=== PATIENT | female | born 1940 | race Caucasian/White ===

== ENCOUNTER → 2018-03-07 | Outpatient (CLI) | payer OTHER, BC ==
[~2018-03-07] MED LIST: ALBU0.08 INH; ASCA500 PO; ASPI81TA28 PO; ASTN; CHOL100010 PO; DOXA1TAB PO; IMMU4INJ INJ; MULT-506 PO; OPTIRAY 320 IV PRN
--- NOTE | 2018-03-07 12:22 | DIAGNOSTIC IMAGING REPORT ---
CT SCAN OF THE CHEST, ABDOMEN, AND PELVIS WITH IV CONTRAST CLINICAL HISTORY: Waldenstrom macroglobulinemia. COMPARISON STUDY: Chest CT dated 03/28/2014. Abdominal CT dated 05/27/2014. Chest x-ray dated 12/15/2014. TECHNIQUE: Following the IV administration of 119 of Optiray 320, CT scan of the chest, abdomen, and pelvis was performed from the thoracic inlet to the proximal femora. Images are reviewed in the axial, sagittal, and coronal planes. IV contrast was administered without complication. A dose lowering technique was utilized adhering to the principles of ALARA. CT DOSE: 591.25 mGy.cm FINDINGS: CHEST: Thyroid: The thyroid gland is mildly enlarged and heterogeneous. Bilateral low-attenuation thyroid nodules measure up to 12 mm. These been present dating back to 2013. Thoracic aorta: There is mild atherosclerotic calcification of the thoracic aorta, which is normal in caliber and demonstrates 4-vessel variant arch anatomy. No dissection is seen. Pulmonary vasculature: The pulmonary trunk is normal in caliber. There are no filling defects identified in the central pulmonary vessels to indicate pulmonary embolus. Note that this examination was not protocoled for evaluation of the pulmonary arteries. Heart: The heart is normal in size and configuration, and without pericardial effusion. The coronary arteries are densely calcified. Lungs and pleural spaces: There is no airspace consolidation or pleural effusion. The trachea and central airways are clear. Calvarium is seen at the left lung base. Scarring/atelectasis is present in the right middle lobe and lingula. Mediastinum: There is no mediastinal lymphadenopathy. Natalie: Clear. Axillae: There is no axillary lymphadenopathy. Bony thorax: The skeletal structures are osteopenic. There are compression deformities of T7 and T12. Mild degenerative change is noted in the thoracic spine and shoulders. No lytic or blastic lesions are identified. ABDOMEN AND PELVIS: Liver: The contrast-enhanced liver is normal in size, contour, and attenuation. There is no intrahepatic or ductal dilatation. The hepatic veins and portal veins are patent. Gallbladder: Surgically absent noting clips in the gallbladder fossa. Spleen: Normal in size and attenuation, measuring 9.6 cm in length. Pancreas: Atrophic and grossly unremarkable. Adrenal glands: Unremarkable. Kidneys: The contrast enhanced kidneys demonstrate cortical atrophy and are without hydronephrosis. The kidneys enhance symmetrically. Abdominal vasculature: The abdominal aorta is normal in course and caliber noting mild atherosclerotic calcification. Bowel: There is mild colonic diverticulosis without CT evidence of acute diverticulitis. Colonic fecal retention is observed. A hernia in the left ventral pelvis seen on image #281 contains a nonobstructed segment of small bowel. No bowel obstruction is seen. The appendix is not identified and reported surgically absent. Peritoneum: There is no intraperitoneal free air or abdominal ascites. There is a fat-containing umbilical hernia as well as a small fat-containing infraumbilical hernia. A bowel containing hernia is seen in the left lower quadrant. Lymphadenopathy: None. Pelvic viscera: Evaluation of the pelvis is degraded by streak artifact from a left hip arthroplasty. The bladder wall appears mildly thickened and hyperemic. There is a small focus of gas within the bladder lumen and there is faint pericystic inflammatory change. The uterus and adnexa are normal as imaged. Skeletal structures: The skeletal structures are osteopenic. There are compression deformities of L2, L3, L4, and L5. Lumbosacral spondylosis is observed. No lytic or blastic lesions are seen. A left hip or other plasty is in place. IMPRESSION: 1. There is no lymphadenopathy identified in the chest, abdomen, or pelvis. 2. The spleen is normal in size. 3. The lungs are clear. 4. Findings suggest cystitis. Correlation with clinical findings and urinalysis will be required. 5. There is mild colonic diverticulosis without CT evidence of acute diverticulitis. 6. There is a hernia in the left ventral pelvis which contains a nonobstructed segment of small bowel. 7. There are numerous chronic thoracolumbar compression deformities, which have been present dating back to 2013. 8. Additional findings as above. Electronically signed by: Aiden Patel M.D. 03/07/2018 12:21 PM Dictated Date/Time: 03/07/2018 12:10 PM
== END | disposition home or self-care (01) ==
LOC: C.CTS 11:22
PROVIDERS: ATTEND Internal Medicine Hematology & Oncology
DX: C88.0 Waldenstrom macroglobulinemia (principal)

== ENCOUNTER 2018-03-15 20:10 | Emergency (ER) | payer OTHER, BC ==
[~2018-03-15 20:10] MED LIST changes: -OPTIRAY 320 IV PRN
[2018-03-15 20:19] VITALS: TEMP 36.6; Ht 157.5 cm
[2018-03-15] MEDS ORDERED: ONDANSETRON 4MG OD TAB PO ONE (20:30)
[2018-03-15] MEDS ORDERED: OXYCODONE HCL IR 5 MG TAB (IMMEDIATE RELEASE) PO STA (20:30)
--- NOTE | 2018-03-15 21:14 | DIAGNOSTIC IMAGING REPORT ---
CT SCAN OF THE BRAIN WITHOUT IV CONTRAST CLINICAL HISTORY: Fall. COMPARISON STUDY: CT of the brain dated 04/11/2012. TECHNIQUE: Unenhanced axial CT scan of the brain is performed from the vertex to the skull base. A dose lowering technique was utilized adhering to the principles of ALARA. CT DOSE: 638.56 mGycm FINDINGS: Brain parenchyma: There are age-related involutional changes noting moderate patchy subcortical and periventricular microangiopathic change. Chronic lacunar infarcts are present within the basal ganglia bilaterally. There is no hemorrhage, mass effect, or evidence of acute territorial ischemia by CT criteria. Wolfe-white matter is preserved. No extra-axial fluid collection is seen. Ventricles, sulci, cisterns: Prominent secondary to involutional change. Intracranial vasculature: There is atherosclerotic calcification of the cavernous carotid arteries. Calvarium: The skeletal structures are osteopenic. There is no depressed calvarial fracture. Soft tissues: There is trace frontal scalp contusion. Sinuses and mastoids: There is moderate mucosal thickening within the ethmoid sinuses. Mild mucosal thickening is seen within the maxillary antra, noting an air-fluid level in the left. The mastoid air cells are well pneumatized. A tiny metallic foreign body is noted within a left mastoid air cell. Orbits: The bony orbits are grossly intact. There are bilateral ocular lens implants. IMPRESSION: 1. There is no hemorrhage, mass effect, or evidence of acute territorial ischemia by CT criteria. 2. Paranasal sinus disease as above. Electronically signed by: Aiden Patel M.D. 03/15/2018 9:13 PM Dictated Date/Time: 03/15/2018 9:09 PM
--- NOTE | 2018-03-15 21:26 | DIAGNOSTIC IMAGING REPORT ---
CT SCAN OF THE CERVICAL SPINE CLINICAL HISTORY: Trauma. Fall. COMPARISON STUDY: PET/CT dated 07/17/2013. TECHNIQUE: CT scan of the cervical spine is performed from the skull base to the upper thoracic spine. Images are reviewed in the axial, sagittal, and coronal planes. IV contrast was not administered for this examination. A dose lowering technique was utilized adhering to the principles of ALARA. CT DOSE: 391.08 mGycm FINDINGS: Skeletal structures: The skeletal structures are osteopenia. There is no evidence of fracture or subluxation involving the cervical spine. Vertebral body height is maintained. There is minimal anterolisthesis at C4-C5 and C6-C7. Alignment is otherwise preserved. There is straightening of the cervical lordosis. Small anterior osteophytes are seen throughout. The odontoid process and lateral masses are intact. The atlantoaxial articulation is preserved noting productive degenerative change. The spinous processes appear intact. There is moderate multilevel cervical spondylosis. Uncovertebral and facet arthropathy contribute to neural foraminal narrowing at several levels. Arthritic change is noted at the temporomandibular joints. Intervertebral discs: There is moderate disc space narrowing at C5-C6 and C6-C7. The remaining disc spaces appear maintained. Central canal: Large posterior disc osteophyte complexes at C5-C6 and C6-C7 likely contribute to acquired compromise of the central canal. Soft tissues: The prevertebral and paraspinous soft tissues are within normal limits. Atherosclerotic calcification is noted in the carotid bulbs. A 1.5 cm calcified exophytic thyroid nodule seen posterior to the right thyroid lobe is unchanged dating back to 2012. Calvarium: The visualized calvarium at the skull base appears intact. Brain parenchyma: Partially visualized brain parenchyma the skull base is within normal limits noting age-related involutional change. Sinuses and mastoids: Mucosal thickening and trace fluid is noted within the maxillary antra. The mastoid air cells are well pneumatized. A small metallic foreign body is noted in the left middle ear cavity. Lung apices: Clear as visualized. IMPRESSION: 1. There is no evidence of fracture or subluxation involving the cervical spine. 2. Osteopenia and spondylotic change as above. Electronically signed by: Aiden Patel M.D. 03/15/2018 9:24 PM Dictated Date/Time: 03/15/2018 9:19 PM
[2018-03-15] MEDS ORDERED: OXYCODONE IR HOME PACK PO ONE (22:00)
[2018-03-15] MEDS ORDERED: OXYC-90 PO (22:00)
[2018-03-15 22:19] VITALS: BP 147/88; PULSE 89; O2SAT 97
--- NOTE | 2018-03-15 22:24 | DIAGNOSTIC IMAGING REPORT ---
LEFT SHOULDER 3 VIEWS; LEFT HUMERUS 2 VIEWS CLINICAL HISTORY: Fall with left arm injury. FINDINGS: 3 views of the left shoulder with AP and lateral views of the left humerus are obtained. No prior studies are available for comparison at the time of dictation. The skeletal structures are osteopenic. There is an impacted and comminuted fracture of the left humeral neck and head. There are distracted fragments from the humeral head. The humeral head remains within the glenoid fossa. The acromioclavicular joint is preserved noting productive degenerative change. The distal humeral shaft is intact. The elbow joint is grossly maintained. Soft tissue edema is noted around the humeral fracture. The visualized left lung parenchyma appears clear. IMPRESSION: There is an impacted and comminuted fracture of the left humeral neck and head as above. Electronically signed by: Aiden Patel M.D. 03/15/2018 10:23 PM Dictated Date/Time: 03/15/2018 10:20 PM
--- NOTE | 2018-03-15 22:38 | EMERGENCY ROOM VISIT NOTE ---
History Report prepared by Al: Toni Campos Under the Supervision of: Dr. Douglas Ryan M.D. First contact with patient: 20:24 Chief Complaint: FALL Stated Complaint: FELL EARLIER, LEFT ARM/SHOULDER PAIN, HIT HEAD History of Present Illness The patient is a 77 year old female who presents to the Emergency Room with complaints of a sharp pain in her left shoulder after a fall that occurred this morning. The patient states that she tripped over a doorway and fell, noting that she hit her head. She is unsure if she lost consciousness, but notes that she was unable to get up initially and "just laid there awhile." She does not believe she injured her hips or back. She states that the pain in her shoulder is worsened with movement. She did not want to come in earlier but her arm pain worsens. She notes a current headache and some neck stiffness. The patient denies taking blood thinners or a history of hypertension. The patient' s daughter states that she has not eaten all day. Source of History: patient, family (daughter) Onset: this morning Position: shoulder (left) Symptom Intensity: severe Quality: sharp (pain in shoulder), other (fall) Modifying Factors (Worsening): movement Associated Symptoms: + headache, + neck pain (stiffness), No chest pain, No SOB Note: unsure if she lost consciousness Review of Systems See HPI for pertinent positives & negatives. A total of 10 systems reviewed and were otherwise negative. Past Medical & Surgical Medical Problems: (1) Diverticulosis (2) Hypogammaglobulinemia (3) Waldenstrom macroglobulinemia Family History Cancer Diabetes mellitus Heart disease Hypertension Kidney disease Kidney stones Social History Smoking Status: Never Smoker Alcohol Use: none Drug Use: none Marital Status: single Housing Status: lives with family Occupation Status: retired Current/Historical Medications Scheduled Albuterol Soln (Proventil 0.083% 2.5MG/3ML), 2.5 MG INH Q4-6H Ascorbic Acid (Vitamin C), 500 MG PO QAM Aspirin (Aspirin Ec), 81 MG PO QAM Cholecalciferol (Vitamin D), 2,000 INTER.UNIT PO QAM Doxazosin Mesylate (Cardura), 2 MG PO HS Immune Globulin (Human) Subcut (Hizentra), 8 GM INJ WEEKLY Multivitamin (Multivitamin), 1 TAB PO QAM Scheduled PRN Azelastine Hcl (Astelin Nasal [place]), 1-2 SPRAYS NA BID PRN for PRN Oxycodone Ir (Roxicodone Ir), 5 MG PO Q4H PRN for Pain Allergies Coded Allergies: [place] (Verified Allergy, Intermediate, HIVES, 12/11/14) Sulfa Drugs (Verified Allergy, Mild, RASH,HIVES, 12/11/14) Physical Exam Vital Signs Date Time Temp Pulse Resp B/P (MAP) Pulse Ox O2 Delivery O2 Flow Rate FiO2 03/15/18 22:19 89 18 147/88 97 03/15/18 20:19 36.6 98 18 164/89 96 Room Air Physical Exam Constitutional: Vital signs reviewed. Eyes: Pupils are equal round reactive to light. Conjunctiva are noninjected. ENT: Pharynx is clear without erythema or exudate. Mucous membranes are moist. Neck supple without meningeal signs. Respiratory: Clear to auscultation bilaterally. Breath sounds are equal bilaterally. Cardiovascular: Regular rate and rhythm. No rubs or gallops. GI: Soft, nondistended and nontender. Bowel sounds are present. Musculoskeletal: No midline tenderness to the cervical spine. Diffuse tenderness to the left shoulder and proximal humerus without deformity. No tenderness to the elbow or distal left arm. No hip tenderness. Integumentary: No cyanosis. Neurological: The patient is awake and alert. Cranial nerves II-XII are intact. Motor is 5 out of 5 all extremities. Sensation is intact to light touch all extremities. Normal speech. No pronator drift. Psychiatric: Normal affect. Medical Decision & Procedures ER Provider Diagnostic Interpretation: Radiology results as stated below per my review and the radiologist's interpretation: CT SCAN OF THE CERVICAL SPINE CLINICAL HISTORY: Trauma. Fall. COMPARISON STUDY: PET/CT dated 07/17/2013. TECHNIQUE: CT scan of the cervical spine is performed from the skull base to the upper thoracic spine. Images are reviewed in the axial, sagittal, and coronal planes. IV contrast was not administered for this examination. A dose lowering technique was utilized adhering to the principles of ALARA. CT DOSE: 391.08 mGycm FINDINGS: Skeletal structures: The skeletal structures are osteopenia. There is no evidence of fracture or subluxation involving the cervical spine. Vertebral body height is maintained. There is minimal anterolisthesis at C4-C5 and C6-C7. Alignment is otherwise preserved. There is straightening of the cervical lordosis. Small anterior osteophytes are seen throughout. The odontoid process and lateral masses are intact. The atlantoaxial articulation is preserved noting productive degenerative change. The spinous processes appear intact. There is moderate multilevel cervical spondylosis. Uncovertebral and facet arthropathy contribute to neural foraminal narrowing at several levels. Arthritic change is noted at the temporomandibular joints. Intervertebral discs: There is moderate disc space narrowing at C5-C6 and C6-C7. The remaining disc spaces appear maintained. Central canal: Large posterior disc osteophyte complexes at C5-C6 and C6-C7 likely contribute to acquired compromise of the central canal. Soft tissues: The prevertebral and paraspinous soft tissues are within normal limits. Atherosclerotic calcification is noted in the carotid bulbs. A 1.5 cm calcified exophytic thyroid nodule seen posterior to the right thyroid lobe is unchanged dating back to 2012. Calvarium: The visualized calvarium at the skull base appears intact. Brain parenchyma: Partially visualized brain parenchyma the skull base is within normal limits noting age-related involutional change. Sinuses and mastoids: Mucosal thickening and trace fluid is noted within the maxillary antra. The mastoid air cells are well pneumatized. A small metallic foreign body is noted in the left middle ear cavity. Lung apices: Clear as visualized. IMPRESSION: 1. There is no evidence of fracture or subluxation involving the cervical spine. 2. Osteopenia and spondylotic change as above. Electronically signed by: Aiden Patel M.D. 03/15/2018 9:24 PM Dictated Date/Time: 03/15/2018 9:[address] SCAN OF THE BRAIN WITHOUT IV CONTRAST CLINICAL HISTORY: Fall. COMPARISON STUDY: CT of the brain dated 04/11/2012. TECHNIQUE: Unenhanced axial CT scan of the brain is performed from the vertex to the skull base. A dose lowering technique was utilized adhering to the principles of ALARA. CT DOSE: 638.56 mGycm FINDINGS: Brain parenchyma: There are age-related involutional changes noting moderate patchy subcortical and periventricular microangiopathic change. Chronic lacunar infarcts are present within the basal ganglia bilaterally. There is no hemorrhage, mass effect, or evidence of acute territorial ischemia by CT criteria. Wolfe-white matter is preserved. No extra-axial fluid collection is seen. Ventricles, sulci, cisterns: Prominent secondary to involutional change. Intracranial vasculature: There is atherosclerotic calcification of the cavernous carotid arteries. Calvarium: The skeletal structures are osteopenic. There is no depressed calvarial fracture. Soft tissues: There is trace frontal scalp contusion. Sinuses and mastoids: There is moderate mucosal thickening within the ethmoid sinuses. Mild mucosal thickening is seen within the maxillary antra, noting an air-fluid level in the left. The mastoid air cells are well pneumatized. A tiny metallic foreign body is noted within a left mastoid air cell. Orbits: The bony orbits are grossly intact. There are bilateral ocular lens implants. IMPRESSION: 1. There is no hemorrhage, mass effect, or evidence of acute territorial ischemia by CT criteria. 2. Paranasal sinus disease as above. Electronically signed by: Aiden Patel M.D. 03/15/2018 9:13 PM Dictated Date/Time: 03/15/2018 9:09 PM LEFT SHOULDER 3 VIEWS; LEFT HUMERUS 2 VIEWS CLINICAL HISTORY: Fall with left arm injury. FINDINGS: 3 views of the left shoulder with AP and lateral views of the left humerus are obtained. No prior studies are available for comparison at the time of dictation. The skeletal structures are osteopenic. There is an impacted and comminuted fracture of the left humeral neck and head. There are distracted fragments from the humeral head. The humeral head remains within the glenoid fossa. The acromioclavicular joint is preserved noting productive degenerative change. The distal humeral shaft is intact. The elbow joint is grossly maintained. Soft tissue edema is noted around the humeral fracture. The visualized left lung parenchyma appears clear. IMPRESSION: There is an impacted and comminuted fracture of the left humeral neck and head as above. Electronically signed by: Aiden Patel M.D. 03/15/2018 10:23 PM Dictated Date/Time: 03/15/2018 10:20 PM LEFT SHOULDER 3 VIEWS; LEFT HUMERUS 2 VIEWS CLINICAL HISTORY: Fall with left arm injury. FINDINGS: 3 views of the left shoulder with AP and lateral views of the left humerus are obtained. No prior studies are available for comparison at the time of dictation. The skeletal structures are osteopenic. There is an impacted and comminuted fracture of the left humeral neck and head. There are distracted fragments from the humeral head. The humeral head remains within the glenoid fossa. The acromioclavicular joint is preserved noting productive degenerative change. The distal humeral shaft is intact. The elbow joint is grossly maintained. Soft tissue edema is noted around the humeral fracture. The visualized left lung parenchyma appears clear. IMPRESSION: There is an impacted and comminuted fracture of the left humeral neck and head as above. Electronically signed by: Aiden Patel M.D. 03/15/2018 10:23 PM Dictated Date/Time: 03/15/2018 10:20 PM Medications Administered Medications (Trade) Dose Ordered Sig/Chin Route Start Time Stop Time Status Last Admin Dose Admin Oxycodone HCl (Roxicodone Immediate Rel Tab) 5 mg NOW STAT PO 03/15/18 20:30 03/15/18 20:32 DC 03/15/18 20:37 5 MG Ondansetron HCl (Zofran Odt) 4 mg ONE ONCE PO 03/15/18 20:30 03/15/18 20:32 DC 03/15/18 20:37 4 MG ED Course 2024: The patient was evaluated in room B4B. A complete history and physical exam was performed. 2030: Ordered Zofran 4 mg PO, Oxycodone HCl 5 mg PO 2140: I discussed test results with the patient. She reports that she sees Dr. Almodovar - Orthopedics. 2154: I consulted Dr. Mcintyre - Orthopedic Surgeon. He advises putting the patient in a sling and swath, and to follow up as an outpatient. 2199: I discussed the plan with the patient, who is feeling slightly better. She verbalizes agreement of the treatment plan. The patient was discharged home. Ordered Oxycodone HCl 1 homepack PO. Medical Decision This is a 77-year-old female presents with injuries after fall. Differential diagnosis includes humeral fracture, AC separation, contusion, cervical strain, intracranial hemorrhage, concussion. I did perform a limited focused review of portions of the patient's old chart on the electronic medical record. The patient has had no recent pertinent visits to this hospital. I did evaluate the patient as noted above. I did treat patient with oxycodone. She is also given Zofran ODT because she has not eaten all day. I did order and personally review the patient's x-rays as described above. I did order a CT of the head and cervical spine. I did review the images myself as well as the radiology report as described above. Patient has a proximal humeral fracture. There is no intracranial hemorrhage. There is no cervical fracture. I did reassess the patient. She is feeling somewhat better. I did discuss the test results with her and her daughter. I did discuss the case with orthopedics who recommended a sling and swath and outpatient follow-up. The patient was placed in a sling and swath and discharged with a prescription for oxycodone. She will follow-up with Dr. Almodovar who is her orthopedic doctor. [place] Drug Monitoring Program Search Results: no issues identified Head Trauma GCS Score: 15 Medication Reconcilliation Current Medication List: was personally reviewed by me Blood Pressure Screening Patient's blood pressure: Elevated blood pressure Blood pressure disposition: Referred to PCP Consults Time Called: 2149 Consulting Physician: Dr. Mcintyre - Orthopedic Surgeon Returned Call: [address] Mcintyre - Orthopedic Surgeon. He advises putting the patient in a sling and swath, and to follow up as an outpatient. Impression Primary Impression: Fracture of proximal end of left humerus Additional Impressions: Acute head injury Fall Scribe Attestation The scribe's documentation has been prepared under my direct and personally reviewed by me in its entirety. I confirm that the note above accurately reflects all work, treatment, procedures, and medical decision making performed by me. Departure Information Dispostion Home / Self-Care Prescriptions Oxycodone Ir (Roxicodone Ir) 5 Mg Tab 5 MG PO Q4H Y for Pain, #20 TAB Prov: Douglas Ryan M.D. 03/15/18 Referrals Jac Marley D.O. (PCP) Forms HOME CARE DOCUMENTATION FORM, IMPORTANT VISIT INFORMATION Patient Instructions My [facility] Additional Instructions You have been examined and treated today on an emergency basis only. This is not a substitute for, or an effort to provide, complete comprehensive medical care. It is impossible to recognize and treat all injuries or illnesses in a single emergency department visit. It is therefore important that you follow up closely with your physician and Dr. Almodovar of orthopedics. Call as soon as possible for an appointment. Return for worsening symptoms or if you develop numbness or weakness in your left arm or any other concerning symptoms. Problem Qualifiers Primary Impression: Fracture of proximal end of left humerus Encounter type: initial encounter Fracture type: closed Fracture morphology : unspecified fracture morphology Qualified Codes: S42.202A - Unspecified fracture of upper end of left humerus, initial encounter for closed fracture Additional Impressions: Acute head injury Encounter type: initial encounter Qualified Codes: S09.90XA - Unspecified injury of head, initial encounter Fall Encounter type: initial encounter Qualified Codes: W19.XXXA - Unspecified fall, initial encounter
== END 2018-03-15 22:19 | disposition home or self-care (01) ==
LOC: C.EDB 20:11
DX: S42.202A Unspecified fracture of upper end of left humerus, initial encounter for closed fracture (principal); S09.90XA Unspecified injury of head, initial encounter; W18.09XA Striking against other object with subsequent fall, initial encounter; D80.1 Nonfamilial hypogammaglobulinemia; C88.0 Waldenstrom macroglobulinemia; Z80.9 Family history of malignant neoplasm, unspecified; Z83.3 Family history of diabetes mellitus; Z82.49 Family history of ischemic heart disease and other diseases of the circulatory system; Z84.1 Family history of disorders of kidney and ureter; Z79.82 Long term (current) use of aspirin; Z79.899 Other long term (current) drug therapy; Z88.2 Allergy status to sulfonamides; Z91.018 Allergy to other foods

== ENCOUNTER 2019-11-16 07:35 | Inpatient (IN) ==
[2019-11-16] MEDS ORDERED: ACETAMINOPHEN 325 MG TAB PO PRN (10:32)
[2019-11-16] MEDS ORDERED: ONDANSETRON INJ 2 MG/ML 2 ML VIAL IV PRN (10:32)
--- NOTE | 2019-11-16 11:06 | History & Physical Report ---
Date of Service November 16, 2019 Assessment & Plan (1) Syncope and collapse: unwitnessed fall at home, unsure if she lost consciousness or not will work up for syncope, keep on monitor to look for arrhythmia, check echo most logical explanation would be anemia Hb 7.7, transfused 1 unit at [facility], will repeat CBC at 2pm could be due to UTI? 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 Babin, no need for formal consult as this could be managed outpatient Admission and Anticipated Discharge Date Admission Date: November 16, 2019 History of Present Illness Chief Complaint: I feel last night Primary Care Provider: Osmin Brar 79 yo female with history of Waldenstrom's macroglobulinemia who presented to the ED at [facility] this morning after experiencing a fall at home. She recalls the details of the fall. She says that she has fallen several times over the past few weeks but typically she can get back up. This particular time, she says she was walking to her bedroom to go to bed when suddenly she fell without warning. She does not feel that she tripped, just that her legs got weak and gave out. She denies losing consciousness but she was alone at the time so there are no witnesses to confirm that she did not lose consciousness. She used her life alert button, family and EMS came to her house, they were able to get her up to a chair and then EMS brought her to ED. She said that she fell on carpeted floor. She had some pain on back of her head but no severe pain in any joints. She could move all her extremities, she just had profound weakness, could not even crawl on the ground. She denies experiencing any light headedness, any chest pain, any diaphoresis prior to the fall. She says that the past few days she has been feeling fine. She has been eating well, moving her bowels, making urine. No fever or chills, no cough, no dyspnea, no chest pain. Reviewed her recent medical care, including a visit with Dr. Babin at [facility] and her PET scan and bone marrow biopsy. She has a history of Waldenstrom's macroglobulinemia that was diagnosed in 2011 after she had a left hip fracture, pathology showed B cell lymphoma. Eventually pathology showed Waldenstrom's. She was treated with four cycles of cladribine, Rituxan and Velcade. She was then maintained on Rituxan and Velcade until 11/2013, considered to be in remission, just followed. Developed hypogammaglobulinemia and given Hizentra for maintenance. More recently she developed anemia and was referred back to oncology. Found to have an M spike on monoclonal proteins. She had a PET scan on 10/08 that showed diffuse marrow activity, minimal increased activity in cervical lymph nodes, not pathologically enlarged. Underwent BM biopsy with Dr. 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 She was supposed to follow up with Dr. Lawrence for results and further recommendations. In the ED at [facility] she was afebrile, vitals stable. Hb found to be 7.7, ordered one unit PRBC in the ED. Cr stable, electrolytes normal. UA showed possible UTI so she was given Rocephin. No fractures on imaging. CT head without hematoma. EKG with normal sinus rhythm, no ischemic changes. Family strongly requested transfer to [facility] because of oncology and continuity of care. Family refused to have her admitted to [facility]. Allergies Allergy/AdvReac Type Severity Reaction Status Date / Time strawberry Allergy Intermediate HIVES Verified 09/27/19 09:13 Sulfa (Sulfonamide Allergy Mild RASH,HIVES Verified 09/27/19 09:13 Antibiotics) Home Medications Home Medications Medication Instructions Recorded Confirmed Type ascorbic acid (vitamin C) 500 mg 500 mg PO DAILY cap 06/16/19 09/27/19 History capsule aspirin 81 mg tablet 81 mg PO DAILY tab 06/16/19 09/27/19 History cholecalciferol (vitamin D3) 50 2,000 units PO DAILY tab 06/16/19 09/27/19 History mcg (2,000 unit) tablet doxazosin 8 mg tablet 8 mg PO DAILY tab 06/16/19 09/27/19 History multivitamin 1 tab PO DAILY 06/16/19 09/27/19 History gabapentin 100 mg PO BID 09/27/19 09/27/19 History Past Med/Surg History Medical History (Updated 11/16/19 @ 11:30 by Bishop Cole DO) Anemia (Acute) History of chemotherapy (Acute) Waldenstrom's disease (Acute) Surgical History (Updated 09/27/19 @ 09:20 by Sarahi Duenas RN) History of colostomy (Acute) History of colostomy reversal (Acute) History of ear, nose, and throat (ENT) surgery (Acute) History of hip surgery (Acute) partial left History of tonsillectomy and adenoidectomy (Acute) Hx of appendectomy (Acute) Family History (Updated 11/16/19 @ 11:26 by Bishop Cole DO) Other Hypertension Social History Preferred Language: Mauritian Communication Ability: Effective School Psychology Specialist Required: No Beliefs That Will Affect Care: None Current Living Situation: Alone Other Information That Helps Us Care for You: No Feels Safe at Home: Yes Safety Concerns: Feels Safe At This Time Smoking Status: Unknown if ever smoked Hx Alcohol Use: No Hx Substance Use: No Review of Systems Review of Systems: All systems reviewed & are unremarkable except as noted in HPI & below Physical Exam Constitutional: well developed, well nourished and + frail appearing; no acute distress Eyes: PERRL, conjunctivae normal, anicteric sclerae ENMT: external ear and nose normal, oropharynx normal Neck: trachea midline, no thyromegaly Respiratory: normal respiratory effort, lungs clear to auscultation Cardiovascular: RRR, no murmur, no edema Gastrointestinal (Abdomen): normal bowel sounds, soft, nontender, no hep atosplenomegaly Musculoskeletal: Head/Neck/Chest: normocephalic and head atraumatic Extremities: extremities normal to inspection and + abnormal strength (generalized weakness); full ROM of extremities, no cyanosis, no clubbing and no petechiae Skin: no rashes, warm and dry Neurologic: patellar DTR's 2+ bilat, sensation intact and PERRL, EOMI, accommodation nl, no face palsy, no dysarthria Psychiatric: A+Ox3, euthymic affect Lymphatic: no cervical or axillary lymphadenopathy Code Status & VTE Plan Code Status DNR - discussed with patient, she said clearly she would not want anything done if she stopped breathing or heart stopped VTE Prophylaxis Plan VTE Prophylaxis will be ordered: Yes PG Care Time/CCT Total # of Minutes Spent Total Time Spent with Patient: Total time spent is greater than 50% in coordination of care (as documented) at patient's floor/unit and/or counseling patient: Coding Level of Care Code 22667 OBS Care - Level 3 Diagnoses Syncope and collapse R55 Symptomatic anemia D64.9 UTI (urinary tract infection) N39.0 Waldenstrom macroglobulinemia C88.0 Malignant lymphoplasmacytic lymphoma C83.00
[2019-11-16 12:19] LABS: Hematocrit (blood only) 29.9 % (37-47); Hemoglobin 9.5 g/dL (12.0-16.0); Mean Corpuscular Hemoglobin 30.8 pg (25-34); Mean Corpuscular Hgb Conc 31.8 g/dL (32-36); Mean Corpuscular Volume 97.1 fL (80-100); Mean Platelet Volume 8.9 fL (7.4-10.4); Nucleated RBC # (auto) 0.02 K/uL (0-0); Nucleated RBC % (auto) 0.2 %; Platelet Count 203 K/uL (130-400); RDW Coefficient of Variation 19.5 % (11.5-14.5); RDW Standard Deviation 69.1 fL (36.4-46.3); Red Blood Count 3.08 M/uL (4.2-5.4); White Blood Count 7.38 K/uL (4.8-10.8)
[2019-11-16 12:56] LABS: Basophils # (auto) 0.02 K/uL (0-0.2); Basophils % (auto) 0.3 %; Eosinophils # (auto) 0.07 K/uL (0-0.5); Eosinophils % (auto) 0.9 %; Immature Granulocytes # (auto) 0.38 K/uL (0.00-0.02); Immature Granulocytes % (auto) 5.1 %; Lymphocytes # (auto) 0.54 K/uL (1.2-3.4); Lymphocytes % (auto) 7.3 %; Monocytes # (auto) 1.66 K/uL (0.11-0.59); Monocytes % (auto) 22.5 %; Neutrophils # (auto) 4.71 K/uL (1.4-6.5); Neutrophils % (auto) 63.9 %; RBC Morphology Unremarkable
--- NOTE | 2019-11-16 13:24 | XCELERA ---
[id number] [id number]
[2019-11-16] MEDS: HEPARIN SOD 5,000 UNIT/0.5 ML VIAL SQ SCH ×2 (14:33→21:46)
[2019-11-16 14:35] LABS: Alanine Aminotransferase 12 U/L (12-78); Albumin Level 1.9 gm/dl (3.4-5.0); Aspartate Aminotransferase 14 U/L (15-37); BUN Creatinine Ratio 17.6 (10-20); Blood Urea Nitrogen 14 mg/dl (7-18); Calcium 8.8 mg/dl (8.5-10.1); Carbon Dioxide 25 mmol/L (21-32); Chloride 110 mmol/L (98-107); Creatinine Clr Calc Pharmacy 45.9 ml/min; Est GFR (African American) 84.5; Est GFR (Non-African American) 72.9; Glucose 121 mg/dl (70-99); Potassium 3.9 mmol/L (3.5-5.1); Sodium 139 mmol/L (136-145)
[2019-11-16 14:39] LABS: Albumin Globulin Ratio 0.4 (0.9-2); Alkaline Phosphatase 139 U/L (45-117); Bilirubin,Total 0.6 mg/dl (0.2-1); Total Protein 6.9 gm/dl (6.4-8.2); Troponin I < 0.015 ng/ml (0-0.045)
[2019-11-17] MEDS: HEPARIN SOD 5,000 UNIT/0.5 ML VIAL SQ SCH ×3 (06:37→20:34)
[2019-11-17 08:29] LABS: Hematocrit (blood only) 31.4 % (37-47); Hemoglobin 9.8 g/dL (12.0-16.0); Mean Corpuscular Hemoglobin 30.1 pg (25-34); Mean Corpuscular Hgb Conc 31.2 g/dL (32-36); Mean Corpuscular Volume 96.3 fL (80-100); Mean Platelet Volume 9.1 fL (7.4-10.4); Platelet Count 215 K/uL (130-400); RDW Coefficient of Variation 19.4 % (11.5-14.5); RDW Standard Deviation 67.5 fL (36.4-46.3); Red Blood Count 3.26 M/uL (4.2-5.4); White Blood Count 6.92 K/uL (4.8-10.8)
[2019-11-17 08:49] LABS: Creatinine Clr Calc Pharmacy 54.6 ml/min; Est GFR (African American) 100.3; Est GFR (Non-African American) 86.6; Potassium 3.9 mmol/L (3.5-5.1)
--- NOTE | 2019-11-17 11:38 | Hospitalist Progress Note ---
Date of Service November 17, 2019 Assessment & Plan (1) Syncope and collapse: unwitnessed fall at home, unsure if she lost consciousness or not will work up for syncope -- no arrhythmia seen, echocardiogram with EF 70%, no valve disease most logical explanation would be anemia Hb 7.7, transfused 1 unit at [facility], Hb up to 9.8 today could be due to UTI? continue treatment with Rocephin no signs of dehydration will order PT/OT -- OT recommending rehab, family agrees CM to reach out to family to discuss options, anticipate referral and approval taking a few days change patient to full admission down grade to medical status, safe to remove monitor (2) Symptomatic anemia: Hb 7.7 at [facility] this is due to lymphoma, no h/o GI bleed, no melena reported Hb up to 9.8, follow daily (3) UTI (urinary tract infection): possible UTI, given Rocephin at [facility] WBC normal, no fever here urine culture growing > 100k GN bacilli per 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 Babin, no need for formal consult as this could be managed outpatient he plans to call patient/family and arrange for visit in near future Admission and Anticipated Discharge Date Admission Date: November 16, 2019 Subjective patient sitting up in a chair this morning, got up with OT she says she ate most of her breakfast she still feels weak, according to OT notes she is NOT safe to go home, recommend rehab discussed with her daughter Brenda, she agrees with rehab spoke with CM, they will reach out to make referrals, change to full admission as she will be here a few days reviewed labs, Hb up to 9.8, Cr and electrolytes stable d/w Dr. Babin about BM biopsy results, symptomatic anemia, no need for inpatient consult, he will call patient/family, arrange visit in next few weeks I called the [facility] ED at [phone] and spoke with ED physician, patient's urine culture growing 100K GN bacilli, no growth on blood cultures physician said to call back tomorrow for final culture results to guide therapy Review of Systems Review of Systems: All systems reviewed & are unremarkable except as noted in HPI & below Constitutional: + weakness; no fever, no chills, no sweats and no fatigue Respiratory: no cough and no dyspnea Cardiovascular: no chest pain, no syncope and no edema Gastrointestinal: no abdominal pain, no nausea, no vomiting, no constipation and no diarrhea/loose stools Genitourinary: no dysuria Physical Exam Constitutional: well developed, well nourished and + frail appearing; no acute distress Eyes: PERRL, conjunctivae normal, anicteric sclerae ENMT: external ear and nose normal, oropharynx normal Neck: trachea midline, no thyromegaly Respiratory: normal respiratory effort, lungs clear to auscultation Cardiovascular: RRR, no murmur, no edema Gastrointestinal (Abdomen): normal bowel sounds, soft, nontender, no hepatosplenomegaly Musculoskeletal: Head/Neck/Chest: normocephalic and head atraumatic Extremities: extremities normal to inspection and + abnormal strength (generalized weakness); full ROM of extremities, no cyanosis, no clubbing and no petechiae Skin: no rashes, warm and dry Neurologic: patellar DTR's 2+ bilat, sensation intact and PERRL, EOMI, accommodation nl, no face palsy, no dysarthria Psychiatric: A+Ox3, euthymic affect Lymphatic: no cervical or axillary lymphadenopathy Results & Data Results & Data ([facility]) Vital Signs (Past 12 Hours) Vital Signs Temp Pulse Pulse Resp BP BP Pulse Ox 11/17/19 07:34 89 11/17/19 07:05 36.5 C 88 18 131/68 95 11/17/19 04:00 36.6 C 93 H 20 134/66 95 11/16/19 23:56 94 H Laboratory Results Laboratory Results - last 24 hr 11/16/19 11/16/19 11/17/19 11:53 14:03 08:18 WBC 7.38 6.92 RBC 3.08 L 3.26 L Hgb 9.5 L 9.8 L Hct 29.9 L 31.4 L MCV 97.1 96.3 MCH 30.8 30.1 MCHC 31.8 L 31.2 L RDW Std Deviation 69.1 H 67.5 H RDW Coeff of Khushi 19.5 H 19.4 H Plt Count 203 215 MPV 8.9 9.1 Immature Gran % (Auto) 5.1 Neut % (Auto) 63.9 Lymph % (Auto) 7.3 Borden % (Auto) 22.5 Eos % (Auto) 0.9 Baso % (Auto) 0.3 Immature Gran # (Auto) 0.38 H Neut # (Auto) 4.71 Lymph # (Auto) 0.54 L Borden # (Auto) 1.66 H Eos # (Auto) 0.07 Baso # (Auto) 0.02 Absolute Nucleated RBC 0.02 H Nucleated RBC % (auto) 0.2 RBC Morphology Unremarkable Sodium 139 Potassium 3.9 Chloride 110 H Carbon Dioxide 25 Anion Gap 5.0 BUN 14 Creatinine 0.77 Est Cr Clr Drug Dosing 45.9 Est GFR ( Amer) 84.5 Est GFR (Non-Af Amer) 72.9 BUN/Creatinine Ratio 17.6 Glucose 121 H Calcium 8.8 Total Bilirubin 0.6 AST 14 L ALT 12 Alkaline Phosphatase 139 H Troponin I < 0.015 Total Protein 6.9 Albumin 1.9 L Globulin 5.0 H Albumin/Globulin Ratio 0.4 L 11/17/19 08:18 WBC RBC Hgb Hct MCV MCH MCHC RDW Std Deviation RDW Coeff of Khushi Plt Count MPV Immature Gran % (Auto) Neut % (Auto) Lymph % (Auto) Borden % (Auto) Eos % (Auto) Baso % (Auto) Immature Gran # (Auto) Neut # (Auto) Lymph # (Auto) Borden # (Auto) Eos # (Auto) Baso # (Auto) Absolute Nucleated RBC Nucleated RBC % (auto) RBC Morphology Sodium 138 Potassium 3.9 Chloride 107 Carbon Dioxide 25 Anion Gap 6.0 BUN 11 Creatinine 0.59 L Est Cr Clr Drug Dosing 54.6 Est GFR ( Amer) 100.3 Est GFR (Non-Af Amer) 86.6 BUN/Creatinine Ratio 18.0 Glucose 103 H Calcium 9.0 Total Bilirubin AST ALT Alkaline Phosphatase Troponin I Total Protein Albumin Globulin Albumin/Globulin Ratio Medications Administered Current Inpatient Medications Acetaminophen (Tylenol) 650 mg PO Q4H PRN PRN Reason: Pain or Fever Stop: 12/16/19 10:31 Heparin Sodium (Porcine) (Heparin Sodium (Porcine)) 5,000 units SQ Q8 PREETI Stop: 12/16/19 13:59 Last Admin: 11/17/19 06:37 Dose: 5,000 units Documented by: Ceftriaxone Sodium 1,000 mg/ (Dextrose) 60 mls @ 100 mls/hr IV DAILY@1100 PREETI; Protocol Stop: 11/22/19 10:59 Ondansetron HCl (Zofran) 4 mg IV Q6H PRN PRN Reason: Nausea Stop: 12/16/19 10:31 PG Care Time/CCT Total # of Minutes Spent Total Time Spent: 38 Total Time Spent with Patient: Total time spent is greater than 50% in coordination of care (as documented) at patient's floor/unit and/or counseling patient: spoke with DEEJAY Burroughs ED physician spoke with Dr. Babin spoke with patient's daughter Brenda spoke with CM department Coding Level of Care Code 41332 Subseq Hosp Care Lvl 3 Diagnoses Syncope and collapse R55 Symptomatic anemia D64.9 UTI (urinary tract infection) N39.0 Waldenstrom macroglobulinemia C88.0 Malignant lymphoplasmacytic lymphoma C83.00
[2019-11-17] MEDS: cefTRIAXone SODIUM 1,000 MG in DEXTROSE 5% 50 ML IV SCH (12:13)
[2019-11-17] MEDS: DOXAZosin MESYLATE 4 MG TAB PO SCH (12:14)
[2019-11-17] MEDS: GABAPENTIN 100 MG CAP PO SCH (20:34)
[2019-11-18] MEDS: HEPARIN SOD 5,000 UNIT/0.5 ML VIAL SQ SCH ×3 (06:08→20:22)
[2019-11-18 06:17] LABS: Hematocrit (blood only) 29.7 % (37-47); Hemoglobin 9.2 g/dL (12.0-16.0); Mean Corpuscular Volume 96.7 fL (80-100); Mean Platelet Volume 9.3 fL (7.4-10.4); Platelet Count 214 K/uL (130-400); RDW Coefficient of Variation 19.2 % (11.5-14.5); Red Blood Count 3.07 M/uL (4.2-5.4); White Blood Count 6.06 K/uL (4.8-10.8)
[2019-11-18] MEDS: ASPIRIN 81 MG ECTAB PO SCH (07:54)
[2019-11-18] MEDS: ASCORBIC ACID 500 MG TAB PO SCH (07:54)
[2019-11-18] MEDS: DOXAZosin MESYLATE 4 MG TAB PO SCH (07:55)
[2019-11-18] MEDS: GABAPENTIN 100 MG CAP PO SCH ×2 (07:55→20:22)
[2019-11-18] MEDS: CHOLECALCIFEROL 1,000 UNITS 25 MCG TAB PO SCH (07:55)
[2019-11-18] MEDS: cefTRIAXone SODIUM 1,000 MG in DEXTROSE 5% 50 ML IV SCH (11:10)
--- NOTE | 2019-11-18 14:34 | Hospitalist Progress Note ---
Date of Service November 18, 2019 Assessment & Plan (1) Syncope and collapse: unwitnessed fall at home, unsure if she lost consciousness or not will work up for syncope -- no arrhythmia seen, echocardiogram with EF 70%, no valve disease most logical explanation would be anemia Hb 7.7, transfused [address] [facility], Hb up to 9.8 today could be due to UTI? continue treatment with Rocephin no signs of dehydration will order PT/OT -- OT recommending rehab, family agrees - Referals made. (2) Symptomatic anemia: Hb 7.[address] [facility]; s/p 1 unit PRBCs there. This is due to lymphoma, no h/o GI bleed, no melena reported. - Hgb up to 9.2, follow daily. - Trickling downward, likely from poor bone marrow response due to her lymphoma -> Will likely be transfusion dependent indefinitely. - Would probably have transfusion threshold of ~9 given her symptoms if she gets lower. (3) UTI (urinary tract infection): Possible UTI, given Rocephin at [facility]. WBC normal, no fever here. - Urine culture growing > 100k GN bacilli per [facility] on 11/16. - Continue on Rocephin 1 gm IV daily - Call [phone] or [phone] to discuss final culture results tomorrow to guide therapy (End date: 11/18 anyhow though.) (4) Waldenstrom macroglobulinemia: H/o such. Completed treatment in 2013, was in remission. 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 - Follow up with oncology as outpatient. 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 Discussed with Dr. Babin, no need for formal consult as this could be managed outpatient. - Outpatient visit (6) DVT prophylaxis: Heparin 5000 units Q8h -> Given her hyperviscosity; she is high risk for VTE Admission and Anticipated Discharge Date Admission Date: November 17, 2019 Subjective Reports that she feels lightheaded and tired when she makes a lap around with PT. Otherwise, her eyes also sting. Reports no fevers/chills, chest pain, shortness of breath, abdominal pain, nausea, or vomiting. Physical Exam Constitutional: WD/WN, vitals as above Eyes: EOM intact bilaterally; no conjunctival abnormality ENMT: external ear and nose normal, oropharynx normal Neck: trachea midline, no thyromegaly normal visual inspection Respiratory: normal respiratory effort, lungs clear to auscultation no respiratory distress Cardiovascular: RRR, no murmur, no edema Gastrointestinal (Abdomen): Inspection/Auscultation: abdomen normal to inspection; abdomen not distended Musculoskeletal: no cyanosis or clubbing, extremities motor strength 5/5 Skin: no rashes, warm and dry Neurologic: moves all extremities and awake Psychiatric: Orientation: alert, oriented to person and cooperative Results & Data Results & Data ([facility]) Vital Signs (Past 12 Hours) Vital Signs Temp Pulse Resp BP Pulse Ox 11/18/19 07:08 36.5 C 90 16 131/67 96 PG Care Time/CCT Total # of Minutes Spent Total Time Spent with Patient: Total time spent is greater than 50% in coordination of care (as documented) at patient's floor/unit and/or counseling patient: Coding Level of Care Code 87750 Subseq Hosp Care Lvl 2 Diagnoses Syncope and collapse R55 Symptomatic anemia D64.9 UTI (urinary tract infection) N39.0 Waldenstrom macroglobulinemia C88.0 Malignant lymphoplasmacytic lymphoma C83.00 DVT prophylaxis Z29.9
[2019-11-19] MEDS: HEPARIN SOD 5,000 UNIT/0.5 ML VIAL SQ SCH ×3 (05:51→20:02)
[2019-11-19 06:22] LABS: Hematocrit (blood only) 29.2 % (37-47); Hemoglobin 9.1 g/dL (12.0-16.0); Mean Corpuscular Hgb Conc 31.2 g/dL (32-36); Mean Corpuscular Volume 96.4 fL (80-100); Mean Platelet Volume 9.4 fL (7.4-10.4); Platelet Count 218 K/uL (130-400); RDW Coefficient of Variation 18.7 % (11.5-14.5); RDW Standard Deviation 65.5 fL (36.4-46.3); Red Blood Count 3.03 M/uL (4.2-5.4); White Blood Count 6.78 K/uL (4.8-10.8)
[2019-11-19 06:39] LABS: Albumin Level 1.8 gm/dl (3.4-5.0); BUN Creatinine Ratio 16.9 (10-20); Calcium 8.6 mg/dl (8.5-10.1); Creatinine Clr Calc Pharmacy 45.4 ml/min; Est GFR (African American) 93.2; Est GFR (Non-African American) 80.4; Magnesium 2.1 mg/dl (1.8-2.4); Potassium 3.9 mmol/L (3.5-5.1)
[2019-11-19 06:42] LABS: Albumin Globulin Ratio 0.4 (0.9-2); Bilirubin,Total 0.6 mg/dl (0.2-1); Globulin 4.5 gm/dl (2.5-4.0); Total Protein 6.3 gm/dl (6.4-8.2)
[2019-11-19] MEDS: ASPIRIN 81 MG ECTAB PO SCH (08:16)
[2019-11-19] MEDS: GABAPENTIN 100 MG CAP PO SCH ×2 (08:16→20:01)
[2019-11-19] MEDS: DOXAZosin MESYLATE 4 MG TAB PO SCH (08:16)
[2019-11-19] MEDS: CHOLECALCIFEROL 1,000 UNITS 25 MCG TAB PO SCH (08:16)
[2019-11-19] MEDS: ASCORBIC ACID 500 MG TAB PO SCH (08:16)
[2019-11-19] MEDS: cefTRIAXone SODIUM 1,000 MG in DEXTROSE 5% 50 ML IV SCH (11:19)
--- NOTE | 2019-11-19 21:41 | Hospitalist Progress Note ---
Date of Service November 19, 2019 Assessment & Plan (1) Syncope and collapse: unwitnessed fall at home, unsure if she lost consciousness or not will work up for syncope -- no arrhythmia seen, echocardiogram with EF 70%, no valve disease most logical explanation would be anemia Hb 7.7, transfused 1 unit at [facility], trending down to 9.1 could be due to UTI? continue treatment with Rocephin no signs of dehydration will order PT/OT -- OT recommending rehab, family agrees - Referals made. (2) Symptomatic anemia: Hb 7.7 at [facility]; s/p 1 unit PRBCs there. This is due to lymphoma, no h/o GI bleed, no melena reported. - Hgb up to 9.2, follow daily. - Trickling downward, likely from poor bone marrow response due to her lymphoma -> Will likely be transfusion dependent indefinitely. - Would probably have transfusion threshold of ~9 given her symptoms if she gets lower. (3) UTI (urinary tract infection): Possible UTI, given Rocephin at [facility]. WBC normal, no fever here. - Urine culture growing > 100k GN bacilli per [facility] on 11/16. - Continue on Rocephin 1 gm IV daily - Call [phone] or [phone] to discuss final culture results tomorrow to guide therapy (End date: 11/18 anyhow though.) (4) Waldenstrom macroglobulinemia: H/o such. Completed treatment in 2013, was in remission. 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 - Follow up with oncology as outpatient. 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 Discussed with Dr. Babin, no need for formal consult as this could be managed outpatient. - Outpatient visit (6) DVT prophylaxis: Heparin 5000 units Q8h -> Given her hyperviscosity; she is high risk for VTE Admission and Anticipated Discharge Date Admission Date: November 17, 2019 Subjective Patient reports no new complaints, Review of Systems Review of Systems: All systems reviewed & are unremarkable except as noted in HPI & below Physical Exam Physical Exam: Constitutional: WD/WN, vitals as above Eyes: EOM intact bilaterally; no conjunctival abnormality ENMT: external ear and nose normal, oropharynx normal Neck: trachea midline, no thyromegaly normal visual inspection Respiratory: normal respiratory effort, lungs clear to auscultation no respiratory distress Cardiovascular: RRR, no murmur, no edema Gastrointestinal (Abdomen): Inspection/Auscultation: abdomen normal to inspection; abdomen not distended Musculoskeletal: no cyanosis or clubbing, extremities motor strength 5/5 Skin: no rashes, warm and dry Neurologic: moves all extremities and awake Psychiatric: Orientation: alert, oriented to person and cooperative Results & Data Results & Data ([facility]) Vital Signs (Past 12 Hours) Vital Signs Temp Pulse Resp BP Pulse Ox 11/19/19 14:45 36.8 C 93 H 18 121/60 98 PG Care Time/CCT Total # of Minutes Spent Total Time Spent with Patient: Total time spent is greater than 50% in coordination of care (as documented) at patient's floor/unit and/or counseling p atient: Coding Level of Care Code 30417 Subseq Hosp Care Lvl 3 Diagnoses Syncope and collapse R55 Symptomatic anemia D64.9 UTI (urinary tract infection) N39.0 Waldenstrom macroglobulinemia C88.0 Malignant lymphoplasmacytic lymphoma C83.00 DVT prophylaxis Z29.9 Time Spent (min) 35
[2019-11-20] MEDS: HEPARIN SOD 5,000 UNIT/0.5 ML VIAL SQ SCH (05:46)
[2019-11-20] MEDS: ASCORBIC ACID 500 MG TAB PO SCH (07:43)
[2019-11-20] MEDS: GABAPENTIN 100 MG CAP PO SCH (07:43)
[2019-11-20] MEDS: ASPIRIN 81 MG ECTAB PO SCH (07:43)
[2019-11-20] MEDS: CHOLECALCIFEROL 1,000 UNITS 25 MCG TAB PO SCH (07:43)
[2019-11-20] MEDS: DOXAZosin MESYLATE 4 MG TAB PO SCH (07:43)
[2019-11-20 10:29] LABS: Basophils # (auto) 0.02 K/uL (0-0.2); Basophils % (auto) 0.4 %; Eosinophils # (auto) 0.09 K/uL (0-0.5); Eosinophils % (auto) 1.7 %; Hematocrit (blood only) 29.1 % (37-47); Hemoglobin 9.2 g/dL (12.0-16.0); Immature Granulocytes # (auto) 0.23 K/uL (0.00-0.02); Immature Granulocytes % (auto) 4.3 %; Lymphocytes # (auto) 0.59 K/uL (1.2-3.4); Lymphocytes % (auto) 10.9 %; Mean Corpuscular Hemoglobin 30.8 pg (25-34); Mean Corpuscular Hgb Conc 31.6 g/dL (32-36); Mean Corpuscular Volume 97.3 fL (80-100); Mean Platelet Volume 8.6 fL (7.4-10.4); Monocytes # (auto) 0.61 K/uL (0.11-0.59); Monocytes % (auto) 11.3 %; Neutrophils # (auto) 3.86 K/uL (1.4-6.5); Neutrophils % (auto) 71.4 %; Platelet Count 197 K/uL (130-400); RDW Standard Deviation 66.9 fL (36.4-46.3); Red Blood Count 2.99 M/uL (4.2-5.4)
[2019-11-20 10:46] LABS: BUN Creatinine Ratio 14.5 (10-20); Creatinine Clr Calc Pharmacy 43.4 ml/min; Est GFR (African American) 79.5; Est GFR (Non-African American) 68.6; Potassium 3.9 mmol/L (3.5-5.1)
[2019-11-20] MEDS: cefTRIAXone SODIUM 1,000 MG in DEXTROSE 5% 50 ML IV SCH (12:24)
--- NOTE | 2019-11-26 07:30 | Discharge Summary ---
Date of Service November 20, 2019 Admission HPI Per Admitting Provider 79 yo female with history of Waldenstrom's macroglobulinemia who presented to the ED at [facility] this morning after experiencing a fall at home. She recalls the details of the fall. She says that she has fallen several times over the past few weeks but typically she can get back up. This particular time, she says she was walking to her bedroom to go to bed when suddenly she fell without warning. She does not feel that she tripped, just that her legs got weak and gave out. She denies losing consciousness but she was alone at the time so there are no witnesses to confirm that she did not lose consciousness. She used her life alert button, family and EMS came to her house, they were able to get her up to a chair and then EMS brought her to ED. She said that she fell on carpeted floor. She had some pain on back of her head but no severe pain in any joints. She could move all her extremities, she just had profound weakness, could not even crawl on the ground. She denies experiencing any light headedness, any chest pain, any diaphoresis prior to the fall. She says that the past few days she has been feeling fine. She has been eating well, moving her bowels, making urine. No fever or chills, no cough, no dyspnea, no chest pain. Reviewed her recent medical care, including a visit with Dr. Babin at [facility] and her PET scan and bone marrow biopsy. She has a history of Waldenstrom's macroglobulinemia that was diagnosed in 2011 after she had a left hip fracture, pathology showed B cell lymphoma. Eventually pathology showed Waldenstrom's. She was treated with four cycles of cladribine, Rituxan and Velcade. She was then maintained on Rituxan and Velcade until 11/2013, considered to be in remission, just followed. Developed hypogammaglobulinemia and given Hizentra for maintenance. More recently she developed anemia and was referred back to oncology. Found to have an M spike on monoclonal proteins. She had a PET scan on 10/08 that showed diffuse marrow activity, minimal increased activity in cervical lymph nodes, not pathologically enlarged. Underwent BM biopsy with Dr. 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 She was supposed to follow up with Dr. Lawrence for results and further recommendations. In the ED at [facility] she was afebrile, vitals stable. Hb found to be 7.7, ordered one unit PRBC in the ED. Cr stable, electrolytes normal. UA showed possible UTI so she was given Rocephin. No fractures on imaging. CT head without hematoma. EKG with normal sinus rhythm, no ischemic changes. Family strongly requested transfer to [facility] because of oncology and continuity of care. Family refused to have her admitted to [facility]. Principal Diagnosis symptomatic anemia Discharge Exam Constitutional: WD/WN, vitals as above Eyes: EOM intact bilaterally; no conjunctival abnormality ENMT: external ear and nose normal, oropharynx normal Neck: trachea midline, no thyromegaly normal visual inspection Respiratory: normal respiratory effort, lungs clear to auscultation no respiratory distress Cardiovascular: RRR, no murmur, no edema Gastrointestinal (Abdomen): Inspection/Auscultation: abdomen normal to inspection; abdomen not distended Musculoskeletal: no cyanosis or clubbing, extremities motor strength 5/5 Skin: no rashes, warm and dry Neurologic: moves all extremities and awake Psychiatric: Orientation: alert, oriented to person and cooperative Discharge Data Allergies Allergy/AdvReac Type Severity Reaction Status Date / Time strawberry Allergy Intermediate HIVES Verified 09/27/19 09:13 Sulfa (Sulfonamide Allergy Mild RASH,HIVES Verified 09/27/19 09:13 Antibiotics) Consultations 11/16/19 10:34 Consult Case Management - Discharge Planning Routine Hospital Course (1) Syncope and collapse: unwitnessed fall at home, unsure if she lost consciousness or not will work up for syncope -- no arrhythmia seen, echocardiogram with EF 70%, no valve disease most logical explanation would be anemia Hb 7.7, transfused 1 unit at [facility], trending down to 9.1 could be due to UTI? continue treatment with Rocephin no signs of dehydration will order PT/OT -- OT recommending rehab, family agrees - Referals made. Patient discharged to rehab. (2) Symptomatic anemia: Hb 7.7 at [facility]; s/p 1 unit PRBCs there. This is due to lymphoma, no h/o GI bleed, no melena reported. - Hgb up to 9.2, follow daily. - Trickling downward, likely from poor bone marrow response due to her lymphoma -> Will likely be transfusion dependent indefinitely. - Would probably have transfusion threshold of ~9 given her symptoms if she gets lower. (3) UTI (urinary tract infection): Possible UTI, given Rocephin at [facility]. WBC normal, no fever here. - Urine culture growing > 100k GN bacilli per [facility] on 11/16. - Continue on Rocephin 1 gm IV daily completed course. (4) Waldenstrom macroglobulinemia: H/o such. Completed treatment in 2013, was in remission. 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 - Follow up with oncology as outpatient. 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 Discussed with Dr. Babin, no need for formal consult as this could be managed outpatient. - Outpatient visit (6) DVT prophylaxis: Heparin 5000 units Q8h -> Given her hyperviscosity; she is high risk for VTE Total Time Total Time Spent Total Time Spent (In Minutes): 32 Total Time Includes: Examination of the Patient, Discharge Planning and Medication Reconciliation Discharge Plan Discharge Items Patient Disposition: Transfer Inpatient Rehab Fac Reason For Visit: SYNCOPE,ANEMIA Discharge Diagnosis: Symptomatic Anemia Activity: Resume your previous activity Non-emergency contact: Primary Care Provider Call non-emergency contact if: you have any medication questions Follow-up/Referrals: Osmin Brar, LUPE [Primary Care Provider] - Diet: Vegan (no animal product) Addtl Attending Provider Instructions: Followup with PCP in 1-2 weeks. May need transfusion periodically. Will recommend transfusion when hemoglobin is below 9. Check CBC in 1 week. Coronavirus disease 2019 (COVID-19) is a virus that causes a respiratory illness. It is caused by a coronavirus called 2019 novel coronavirus (2019- nCoV). There are many types of coronavirus. Coronaviruses are a very common cause of bronchitis. They may sometimes cause lung infection(pneumonia). Symptoms can range from mild to severe respiratory illness. These viruses are also foundin some animals. COVID-19 was first found in people in [facility], in late 2018. In 2020, several cases of COVID-19 have been confirmed in the [place] Public health officials are working to find the source. How the virus spreads is not yet fully known. It may be spread through droplets of fluid that a person coughs or sneezes into the air. It may be spread if you touch a surface with virus on it, such as a handle or object, and then touch your mouth. What are the symptoms of COVID-19? Some people have no symptoms or mild symptoms. Symptoms may appear 2 to 14 days after contact with the virus. Symptoms can include: Fever Coughing Trouble breathing What are possible complications from COVID-19? In many cases, this virus can cause infection (pneumonia) in both lungs. In some cases, this can cause . How is COVID-19 diagnosed? Your healthcare provider will ask about your symptoms. He or she will also ask about your recent travel and contact with sick people. Testing for the virus is only done through the [facility]. If yourhealthcare provider thinks you may have COVID- 19, he or she will work with your local health department and the CDC on testing. Follow all instructions from your healthcare provider. COVID-19 is diagnosed by: Nasal and throat swab. A cotton-tipped swab is wiped inside your nose or throat. This is done to check for viruses in your nasal mucus. Sputum culture. A small sample of mucus coughed from your lungs (sputum) is collected if you have a cough. It is checked for the virus. How is COVID-19 treated? There is currently no medicine to treat the virus. Treatment is done to help your body while it fights the virus. This is known as supportive care. Supportive care may include: Pain medicine. These include acetaminophen and ibuprofen. They are used to help ease pain and reduce fever. Bed rest. This helps your body fight the illness. For severe illness, you may need to stay in the hospital. Care during severe illness may include: IV (intravenous) fluids.These are given through a vein to help keep your body hydrated. Oxygen. Supplemental oxygen or ventilation with a breathing machine (ventilator) may be given. This is done to keep enough oxygen in your body. Are you at risk for COVID-19? If youve been to a place where people have been sick with this virus, you are at risk for infection. You are at risk if you: Recently traveled to an affected area Had contact with a sick person who recently traveled to this area Had contact with a person who was diagnosed with COVID-19 How can COVID-19 be prevented? There is no vaccine yet. The best prevention is to not have contact with the virus. The CDC advises that people should not travel to areas where there are COVID-19 outbreaks right now for any reason that is not urgent. To help prevent spreading the infection, wash your hands often, or use an alcohol-basedhand code inspector. If you are in an area with COVID-19: Wash your hands often. Or use an alcohol-based hand code inspector often. Only touch your eyes, nose, or mouth with clean hands. Dont have contact with people who are sick. Follow local instructions about being in public. For example, you may be told to not use public transport for a period of time. Stay away from markets that have live or animals. Wash your hands after touching any animals. Don't touch animals that may be sick. Dont share eating or drinking tools with sick people. Dont kiss someone who is sick. Clean surfaces often with disinfectant. If you were in an area with COVID-19 in the last 14 days: Call your healthcare provider. He or she can talk with local health staff to see what action may be needed. Follow all instructions from your provider. Take your temperature every morning and evening for at least 14 days. This is to check for fever. Keep a record of the readings. Keep watch for symptoms of the virus. Tell your provider right away if you have symptoms. If you were in an area with COVID-19 and have a fever or other symptoms: Dont panic. Keep in mind that other illnesses can cause similar symptoms. Stay away from work, school, and public places. Limit physical contact with family members. Don't kiss anyone or share eating or drinking utensils. Clean surfaces you touch with disinfectant. This is to help prevent the virus from spreading. Call your healthcare provider. Explain that you have been exposed to COVID-19 and have symptoms. Do this before going to any hospital. Wait for instructions. Keep in mind that healthcare staff may wear protective equipment such as masks, gowns, gloves, and eye protection. You may be put in a separate room. This is to prevent the possible virus from spreading. Tell the healthcare staff about recent travel. This includes local travel on p ublic transport. Staff may need to find other people you have been in contact with. Follow all instructions the healthcare staff give you. If you have been diagnosed with COVID-19 Follow all instructions from your healthcare provider. Dont leave your home, except to get medical care. Call your healthcare providers office before going. They can prepare and give you instructions. This will help prevent the virus from spreading. Dont go to work, school, or public areas. Dont use public transport or taxis. Stay away from other people in your home. Have them wear face masks around you. Dont share household items or food. Wear a face mask if you can. This includes at home or in a medical facility. Cover your face with a tissue when you cough or sneeze. Throw the tissue away. Wash your hands. Wash your hands often. Caregivers should: Follow all instructions from healthcare staff. Wear a face mask and protective clothing as advised. Wash hands often. Keep track of the sick persons symptoms. Clean surfaces, fabrics, and laundry thoroughly. Keep other people away from the sick person. When to call your healthcare provider Call your healthcare provider: If youve recently traveled and have symptoms If you have been diagnosed with COVID-19 and your symptoms are worse To learn more To find out more about COVID-19, visit the CDC website at www.cdc.gov/coronavirus/2019-ncov/index.html. [employer]. [address] [place] [address]. All rights reserved. This information is not intended as a substitute for professional medical care. Always follow your healthcare professional's instructions. This information has been adapted from [employer] Pending Studies at Discharge: No Stand-Alone Forms: My [facility] Skilled Items Patient informed of condition?: Yes DNR: Yes Discharge Level of Care: Acute rehab Communicable Disease: No Discharge Prognosis: Stable Lines: None Urinary Catheter: No Medications and DC Order Prescriptions: Continued aspirin 81 mg tablet 81 mg PO DAILY RF: 0 doxazosin 8 mg tablet 8 mg PO DAILY RF: 0 ascorbic acid (vitamin C) 500 mg capsule 500 mg PO DAILY RF: 0 cholecalciferol (vitamin D3) 2,000 unit tablet 2,000 units PO DAILY RF: 0 multivitamin tablet 1 tab PO DAILY RF: 0 gabapentin 100 mg Capsule 100 mg PO BID RF: 0 Discharge Orders: Discharge Order (Routine); Ordered 11/20/19 Ordered By: Estiven Shipman Admission Data Admit Date/Time: 11/17/19 11:42 Attending Provider: Estiven Shipman Admit Provider: Bishop Cole Primary Care Provider: Osmin Brar Other Providers: Ana Martinez DC Date/Time DO NOT enter until pt leaves facility: 11/20/19 14:29 Coding Level of Care Code D/C Day Management >30 mins Diagnoses Syncope and collapse R55 Symptomatic anemia D64.9 UTI (urinary tract infection) N39.0 Waldenstrom macroglobulinemia C88.0 Malignant lymphoplasmacytic lymphoma C83.00 DVT prophylaxis Z29.9
== END 2019-11-20 14:29 | DRG 690 ==
LOC: 2N → SUATTDRO 11-17 11:42